=== PATIENT | male | born 1945 | race Caucasian/White ===

== ENCOUNTER → 2017-06-17 | Outpatient (CLI) | payer OTHER ==
[~2017-06-17] MED LIST: ACT15 PO; ASPEC325 PO; CRS20 PO; DIGO0.2518 PO; GLC5 PO; GLC500 PO; LISI5TAB3 PO; OXYC-57 PO; VERA180T15 PO
== END | disposition home or self-care (01) ==
LOC: C.LAB 09:56
PROVIDERS: ATTEND Urology
DX: C61 Malignant neoplasm of prostate (principal)